=== PATIENT | female | born 1950 | race American Indian/Alaskan Native ===

== ENCOUNTER 2017-01-24 08:02 | Outpatient (CLI) | payer MEDICARE ==
--- NOTE | 2017-01-24 12:05 | Mammography Report ---
BILATERAL DIGITAL SCREENING MAMMOGRAM with CAD: 01/24/17 08:02:00 CLINICAL: Routine screening. COMPARISON:01/14/16 FINDINGS: The breasts are almost entirely fatty.A benign right upper outer intraparenchymal lymph node with a fatty hilum. No mass, architectural distortion or suspicious calcifications. IMPRESSION: No mammographic evidence of malignancy. BI-RADS CATEGORY: 2 -- Benign RECOMMENDATION: Routine mammographic screening in one year. COMMENT: Patient follow-up letters are generated by our [employer] application.
== END 2017-01-24 08:03 | disposition home or self-care (01) ==
LOC: MAMMO 08:02
PROVIDERS: ATTEND Family Medicine Adult Medicine
DX: Z12.31 Encounter for screening mammogram for malignant neoplasm of breast (principal)
CPT/HCPCS: 77067; G0202

== ENCOUNTER 2018-10-18 10:03 | Outpatient (CLI) | payer MEDICARE ==
--- NOTE | 2018-10-18 11:56 | Mammography Report ---
DIGITAL SCREENING MAMMOGRAM WITH CAD, 10/18/2018 INDICATION: Routine screening mammography. TECHNIQUE: Digital bilateral 2D mammography was obtained in the craniocaudal and mediolateral obliq ue projections. This examination was interpreted with the benefit of Computer-Aided Detection analysi s. COMPARISON: 01/24/2017 FINDINGS: Breast Density: The breasts are heterogeneously dense, which may obscure small masses. There is no evidence of dominant mass, suspicious calcifications or architectural distortion in eithe r breast. Right intramammary node is stable. IMPRESSION: BI-RADS Category 2: Benign. No mammographic evidence of malignancy. Recommend routine screening ma mmography in one year. A "normal" or negative report should not discourage follow up or biopsy of a clinically significant f inding. A written summary of these findings will be mailed to the patient. The patient will be entered into a mammography reporting system which will generate a reminder letter for the patient's next appointmen t at the appropriate interval. The [employer] recommends yearly mammograms starting at age 40 and continuing as l glo as a woman is in good health. Breast MRI is recommended for women with an approximate 20-25% or greater lifetime risk of breast cancer, including women with a strong family history of breast or ova nettie cancer or who have been treated for Hodgkin's disease. Signer Name: Damian Becker MD Signed: 10/18/2018 11:52 AM Workstation Name: [id number]
== END 2018-10-18 10:04 | disposition home or self-care (01) ==
LOC: SPVWC 10:03
PROVIDERS: ATTEND Family Medicine Adult Medicine
DX: Z12.31 Encounter for screening mammogram for malignant neoplasm of breast (principal)
CPT/HCPCS: 77067

== ENCOUNTER 2019-02-26 08:29 | Outpatient (CLI) | payer MEDICARE ==
--- NOTE | 2019-02-26 13:31 | Magnetic Resonance Report ---
MR brain wo con INDICATION / CLINICAL INFORMATION: 68 years Female; HEADACHES. TECHNIQUE: Multiplanar, multisequence MR images of the brain were obtained. COMPARISON: None available. 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 Mild cerebral atrophy. There are [id number] areas of increased signal intensity on FLAIR imaging in the white matter o f the cerebral hemispheres, as well as the gangliocapsular regions. These are nonspecific findings an d may be related to microangiopathy (hypertension, diabetes, atherosclerosis), given the patient's ag e. Otherwise, no acute ischemia, acute hemorrhage, or hydrocephalus. CRANIOCERVICAL JUNCTION: No significant abnormality. VASCULAR FLOW-VOIDS: No significant abnormality. ORBITS: No significant abnormality of visualized orbits. SINUSES / MASTOIDS: No significant abnormality the visualized paranasal sinuses or mastoid air cells. ADDITIONAL FINDINGS: None. IMPRESSION: 1. No focal mass, hemorrhage, hydrocephalus, or acute ischemia. Signer Name: Robin Guerra MD, III Signed: 02/26/2019 1:26 PM Workstation Name: [id number]
== END 2019-02-26 08:30 | disposition home or self-care (01) ==
LOC: SPVIMAG 08:29
PROVIDERS: ATTEND Family Medicine Adult Medicine
DX: G31.89 Other specified degenerative diseases of nervous system (principal)
CPT/HCPCS: 70551

== ENCOUNTER 2020-06-30 09:42 | Outpatient (CLI) | payer MEDICARE ==
--- NOTE | 2020-06-30 16:01 | Mammography Report ---
DIGITAL SCREENING MAMMOGRAM WITH CAD, 06/30/2020 CLINICAL INFORMATION / INDICATION: Routine screening mammography. TECHNIQUE: Digital bilateral 2D mammography was obtained in the craniocaudal and mediolateral obliqu e projections. This examination was interpreted with the benefit of Computer-Aided Detection analysis . COMPARISON: 10/18/2018, 01/24/2017, 01/14/2016 FINDINGS: Breast Density: There are scattered areas of fibroglandular density. No dominant mass, suspicious calcifications, or architectural distortion in either breast. Right intramammary lymph node is again noted and unchanged. IMPRESSION: No mammographic evidence of malignancy. Follow up recommendation: Routine yearly BI-RADS Category 2: Benign. A "normal" or negative report should not discourage follow up or biopsy of a clinically significant f inding. A written summary of these findings will be mailed to the patient. The patient will be entered into a mammography reporting system which will generate a reminder letter for the patient's next appointmen t at the appropriate interval. The [employer] recommends yearly mammograms starting at age 40 and continuing as l glo as a woman is in good health. Breast MRI is recommended for women with an approximate 20-25% or greater lifetime risk of breast cancer, including women with a strong family history of breast or ova nettie cancer or who have been treated for Hodgkin's disease. Signer Name: Monica Carbajal MD Signed: 06/30/2020 3:57 PM Workstation Name: [id number]
== END 2020-06-30 09:43 | disposition home or self-care (01) ==
LOC: SPVWC 09:42
PROVIDERS: ATTEND Family Medicine Adult Medicine
DX: Z12.31 Encounter for screening mammogram for malignant neoplasm of breast (principal)
CPT/HCPCS: 77067